=== PATIENT | male | born 1935 | race Caucasian/White ===

== ENCOUNTER 2017-07-18 13:30 | Inpatient (IN) | payer MEDICARE, OTHER ==
[~2017-07-18] VITALS: Ht 182.9 cm; Wt 92.4 kg
[2017-07-18] MEDS ORDERED: CELE200C PO (14:25)
[2017-07-18] MEDS ORDERED: METO-539 PO (14:25)
[2017-07-18] MEDS ORDERED: CHOL400T14 PO (14:25)
[2017-07-18] MEDS ORDERED: FEXO180T94 PO (14:25)
[2017-07-18] MEDS ORDERED: FLUT100D2 INH (14:25)
[2017-07-18] MEDS ORDERED: ASPI-1265 PO (14:25)
[2017-07-18] MEDS ORDERED: VITA1CAP (14:25)
[2017-07-18] MEDS ORDERED: OMEG1CAP2 (14:25)
[2017-07-18] MEDS ORDERED: MULT-1085 PO (14:25)
[2017-07-18] MEDS ORDERED: SIMV20TA5 PO (14:25)
[2017-07-18] MEDS ORDERED: FLO0.4C PO (14:25)
[2017-07-18 16:07] LABS: BASOPHILS % (AUTO) 0.3 % (0-1); EOSINOPHILS # (AUTO) 0.2 X10'3 (0-0.9); EOSINOPHILS % (AUTO) 3.8 % (0-6); LYMPHOCYTES # (AUTO) 1.8 X10'3 (1.1-4.8); LYMPHOCYTES % (AUTO) 35.6 % (21-51); MEAN CORPUSCULAR HEMOGLOBIN 31.2 PG (27.0-31.0); MEAN CORPUSCULAR HGB CONC 33.8 % (33.0-36.5); MEAN CORPUSCULAR VOLUME 92.4 FL (78-98); MEAN PLATELET VOLUME 9.2 FL (7.4-10.4); MONOCYTES # (AUTO) 0.3 X10'3 (0-0.9); MONOCYTES % (AUTO) 6.5 % (2-12); NEUTROPHILS # (AUTO) 2.7 X10'3 (1.8-7.7); NEUTROPHILS % (AUTO) 53.8 % (42-75); PRE OP HEMATOCRIT 47.8 % (42.0-52.0); PRE OP HEMOGLOBIN 16.1 g/dL (14.0-17.9); PRE OP PLATELET COUNT 162 X10'3 (140-440); RED BLOOD COUNT 5.18 X10'6 (4.70-6.10); RED CELL DISTRIBUTION WIDTH 14.4 % (11.5-14.5)
[2017-07-18 16:08] LABS: CLARITY,URINE CLEAR (Clear); COLOR,URINE YELLOW (Yellow); GLUCOSE, URINE NEGATIVE (Neg); KETONES,URINE NEGATIVE (Neg); LEUKOCYTE ESTERASE ,URINE SMALL (Neg); NITRITES, URINE NEGATIVE (Neg); OCCULT BLOOD,URINE NEGATIVE (Neg); PROTEIN,URINE NEGATIVE (Neg); UROBILINOGEN,URINE 0.2 E.U/dL (0.2-1.0)
[2017-07-18 16:16] LABS: UA COLLECTION TYPE CLN CATCH MIDSTREAM
[2017-07-18 16:18] LABS: BACTERIA,URINE FEW /HPF (Neg); MUCUS STRANDS FEW /LPF (Neg); RBC,URINE 0-2 /HPF (0-2); SQUAMOUS EPITHELIAL CELL,UR FEW /LPF (FEW); WBC,URINE 0-4 /HPF (0-4)
[2017-07-18 16:21] LABS: ALBUMIN 3.7 G/DL (3.4-5.0); ALKALINE PHOSPHATASE 54 IU/L (46-116); BLOOD UREA NITROGEN 20 MG/DL (7-18); CHLORIDE 105 MMOL/L (99-107); CREATININE 0.87 MG/DL (0.60-1.10); PRE OP ALT 30 U/L (30-65); PRE OP ANION GAP 6 (8-16); PRE OP AST 25 U/L (10-37); PRE OP BILIRUB, TOTAL 0.3 MG/DL (0.0-1.0); PRE OP GLUCOSE 121 MG/DL (70-104); PRE OP SODIUM 140 MMOL/L (135-145); TOTAL CARBON DIOXIDE 29.5 MMOL/L (24-32); TOTAL PROTEIN 7.3 G/DL (6.4-8.2); eGFR 84 ML/MIN
[2017-07-24] VITALS (21 sets, daily range): BP systolic 96–139; BP diastolic 63–93
[2017-07-24] MEDS ORDERED: ringers solution, lacted 1,000 ML IV SCH ×2 (05:00→08:38)
[2017-07-24] MEDS ORDERED: gabapentin 300mg capsule PO ONE (05:30)
[2017-07-24] MEDS ORDERED: tranexamic acid inj. 1,000 MG in normal saline 100ml IV soln 90 ML IV ONE (05:30)
[2017-07-24] MEDS ORDERED: metoclopramide 5 mg/ml inj IV ONE (05:30)
[2017-07-24] MEDS ORDERED: vancomycin inj 1,500 MG in normal saline 300ml IV soln IV ONE (05:30)
[2017-07-24] MEDS ORDERED: famotidine 20mg tablet PO ONE (05:30)
[2017-07-24] MEDS ORDERED: DOCUMENT DATE & TIME OF BETA-BLOCKER PO ONE (05:30)
[2017-07-24] MEDS ORDERED: ceFAZolin inj. 2,000 MG in normal saline 100ml IV soln 100 ML IV ONE (05:30)
[2017-07-24] MEDS ORDERED: acetaminophen 325mg tablet PO ONE (05:30)
[2017-07-24] MEDS ORDERED: oxyCODONE SR 10mg (sust. release) tab PO ONE (05:30)
[2017-07-24] MEDS ORDERED: morphine 10mg/ml inj. ONE (06:36)
[2017-07-24] MEDS ORDERED: ROPIVAcaine 0.5% (5mg/ml) 30ml vial ONE (06:36)
[2017-07-24] MEDS ORDERED: ketorolac trometh. 30mg/ml inj. ONE (06:36)
[2017-07-24] MEDS ORDERED: vancomycin 1,000mg inj ONE (06:37)
[2017-07-24] MEDS ORDERED: ceFAZolin 1000mg inj ONE (06:45)
[2017-07-24] MEDS ORDERED: cloNIDine hcl/PF 100mcg/ml inj ONE (07:17)
[2017-07-24] MEDS ORDERED: tetracaine 1% (10mg/ml) pres. free inj. ONE (07:19)
[2017-07-24] MEDS ORDERED: glycopyrrolate 0.2mg/ml inj ONE (07:20)
[2017-07-24] MEDS ORDERED: diphenhydrAMINE 50 mg/ml inj ONE (07:20)
[2017-07-24] MEDS ORDERED: fentaNYL/PF 50MCG/1 ML 2ML syringe ONE (07:22)
[2017-07-24] MEDS ORDERED: midazolam 2 mg/2 ml injection ONE ×2 (07:22→08:07)
[2017-07-24] MEDS ORDERED: morphine sulfate /PF 0.5 MG/ML 10mL ampul ONE (07:23)
[2017-07-24] MEDS ORDERED: LIDOcaine 2% (20mg/ml) 5ml vial ONE (08:14)
[2017-07-24] MEDS ORDERED: propofol inj 20 ML IV ONE ×2 (08:14)
[2017-07-24] MEDS ORDERED: naloxone 2mg/2ml inj 1.8 MG in normal saline 500ml IV soln 500 ML IV PRN (08:38)
[2017-07-24] MEDS ORDERED: ondansetron/PF 4mg/2ml inj IV PRN ×3 (08:40→10:10)
[2017-07-24] MEDS ORDERED: morphine 4 MG/ML inj SYRINge IV PRN (08:40)
[2017-07-24] MEDS ORDERED: HYDROmorphone inj. 0.5 MG/0.5 ML DISP.SYRIN IV PRN ×2 (08:40)
[2017-07-24] MEDS ORDERED: diphenhydrAMINE 50 mg/ml inj IV PRN (08:40)
[2017-07-24] MEDS ORDERED: dexamethasone sod phosphate 4mg/ml inj. ONE (08:43)
[2017-07-24] MEDS ORDERED: diphenhydrAMINE 25mg capsule PO PRN ×2 (10:10)
[2017-07-24] MEDS ORDERED: HYDROmorphone 1 mg/ml syringe IV PRN ×2 (10:10)
[2017-07-24] MEDS ORDERED: bisacodyl 10mg suppository rectal RC PRN (10:10)
[2017-07-24] MEDS ORDERED: oxyCODONE IR 5mg (immed. release) tablet PO PRN (10:10)
[2017-07-24] MEDS ORDERED: acetaminophen 325mg tablet PO PRN (10:10)
[2017-07-24] MEDS ORDERED: magnesium hydroxide 30ml (MOM) UD suspension PO PRN (10:10)
[2017-07-24] MEDS: gabapentin 300mg capsule PO SCH ×2 (12:31→20:19)
[2017-07-24] MEDS: potassium cl 20mEq in 1/2 NS 1,000 ML IV SCH ×2 (12:31→18:06)
[2017-07-24] MEDS ORDERED: tranexamic acid inj. 900 MG in normal saline 100ml IV soln 100 ML IV ONE (13:30)
[2017-07-24] MEDS: acetaminophen 325mg tablet PO SCH ×2 (14:00→20:18)
[2017-07-24] MEDS: ceFAZolin 1GM/D5W- ADD-VANTAGE 50 ML IV SCH (15:33)
[2017-07-24] MEDS ORDERED: vancomycin/NS 1 GM ADD-VANTAGE 250 ML IV SCH (20:00)
[2017-07-24] MEDS: sennosides 8.6mg tablet PO SCH (20:18)
[2017-07-25] MEDS: ceFAZolin 1GM/D5W- ADD-VANTAGE 50 ML IV SCH (00:08)
[2017-07-25] MEDS: potassium cl 20mEq in 1/2 NS 1,000 ML IV SCH ×3 (01:54→18:06)
[2017-07-25 02:00] VITALS: BP 111/59
[2017-07-25] MEDS: acetaminophen 325mg tablet PO SCH ×4 (02:04→20:12)
[2017-07-25] MEDS: oxyCODONE IR 5mg (immed. release) tablet PO PRN ×3 (05:23→16:58)
[2017-07-25 05:53] LABS: BASOPHILS % (AUTO) 0.3 % (0-1); EOSINOPHILS # (AUTO) 0.1 X10'3 (0-0.9); EOSINOPHILS % (AUTO) 1.8 % (0-6); HEMATOCRIT 38.5 % (42.0-52.0); LYMPHOCYTES # (AUTO) 1.1 X10'3 (1.1-4.8); LYMPHOCYTES % (AUTO) 12.7 % (21-51); MEAN CORPUSCULAR HEMOGLOBIN 31.3 PG (27.0-31.0); MEAN CORPUSCULAR HGB CONC 33.7 % (33.0-36.5); MEAN PLATELET VOLUME 9.1 FL (7.4-10.4); MONOCYTES # (AUTO) 0.6 X10'3 (0-0.9); MONOCYTES % (AUTO) 7.3 % (2-12); NEUTROPHILS # (AUTO) 6.5 X10'3 (1.8-7.7); NEUTROPHILS % (AUTO) 77.9 % (42-75); PLATELET COUNT 130 X10'3 (140-440); RED BLOOD COUNT 4.14 X10'6 (4.70-6.10); RED CELL DISTRIBUTION WIDTH 14.5 % (11.5-14.5); WHITE BLOOD COUNT 8.4 X10'3 (4.5-11.0)
[2017-07-25 06:05] LABS: ANION GAP 5 (8-16); CHLORIDE 105 MMOL/L (99-107); POTASSIUM 4.4 MMOL/L (3.5-5.1); SODIUM 137 MMOL/L (135-145); TOTAL CARBON DIOXIDE 27.3 MMOL/L (24-32)
[2017-07-25 07:15] VITALS: BP 102/60
[2017-07-25] MEDS: gabapentin 300mg capsule PO SCH ×3 (07:41→20:13)
[2017-07-25] MEDS: enoxaparin 40mg/0.4ml syringe SQ SCH (07:42)
[2017-07-25 11:19] VITALS: BP 95/52
[2017-07-25] MEDS: LACTOSE-FREE FOOD 237ML (BOOST) PO SCH ×2 (13:04→18:58)
[2017-07-25 14:21] VITALS: BP 115/66
[2017-07-25 18:00] VITALS: BP 118/76
[2017-07-25] MEDS: atorvastatin 10mg tablet PO SCH (20:12)
[2017-07-25] MEDS: celeCOXIB 100mg capsule PO SCH (20:12)
[2017-07-25] MEDS: cetirizine 10mg tablet PO SCH (20:13)
[2017-07-25] MEDS: sennosides 8.6mg tablet PO SCH (20:13)
[2017-07-25 22:30] VITALS: BP 156/77
[2017-07-26] MEDS: acetaminophen 325mg tablet PO SCH ×2 (02:00→07:44)
[2017-07-26] MEDS: potassium cl 20mEq in 1/2 NS 1,000 ML IV SCH (02:06)
[2017-07-26 05:00] VITALS: BP 151/82
[2017-07-26] MEDS: oxyCODONE IR 5mg (immed. release) tablet PO PRN (05:42)
[2017-07-26 06:09] LABS: BASOPHILS % (AUTO) 0.4 % (0-1); EOSINOPHILS # (AUTO) 0.4 X10'3 (0-0.9); EOSINOPHILS % (AUTO) 6.4 % (0-6); HEMATOCRIT 39.1 % (42.0-52.0); HEMOGLOBIN 13.1 g/dl (14.0-17.9); LYMPHOCYTES # (AUTO) 1.4 X10'3 (1.1-4.8); LYMPHOCYTES % (AUTO) 23.7 % (21-51); MEAN CORPUSCULAR HEMOGLOBIN 31.1 PG (27.0-31.0); MEAN CORPUSCULAR HGB CONC 33.6 % (33.0-36.5); MEAN CORPUSCULAR VOLUME 92.7 FL (78-98); MEAN PLATELET VOLUME 9.1 FL (7.4-10.4); MONOCYTES # (AUTO) 0.5 X10'3 (0-0.9); MONOCYTES % (AUTO) 9.3 % (2-12); NEUTROPHILS # (AUTO) 3.5 X10'3 (1.8-7.7); NEUTROPHILS % (AUTO) 60.2 % (42-75); PLATELET COUNT 130 X10'3 (140-440); RED BLOOD COUNT 4.22 X10'6 (4.70-6.10); RED CELL DISTRIBUTION WIDTH 14.6 % (11.5-14.5); WHITE BLOOD COUNT 5.9 X10'3 (4.5-11.0)
[2017-07-26] MEDS: multivitamins, therapeutics tablet PO SCH (07:43)
[2017-07-26] MEDS: fluticasone nasal spray 16GM bottle NS SCH (07:43)
[2017-07-26] MEDS: tamsulosin 0.4mg capsule PO SCH (07:43)
[2017-07-26] MEDS: gabapentin 300mg capsule PO SCH ×3 (07:43→20:32)
[2017-07-26] MEDS: celeCOXIB 100mg capsule PO SCH ×2 (07:43→20:32)
[2017-07-26] MEDS: metoprolol succinate 25mg (24-HOUR) SR. Tablet PO SCH (07:43)
[2017-07-26] MEDS: cholecalciferol (vitamin D) 400 unit tablet PO SCH (07:44)
[2017-07-26] MEDS: enoxaparin 40mg/0.4ml syringe SQ SCH (07:44)
[2017-07-26] MEDS: LACTOSE-FREE FOOD 237ML (BOOST) PO SCH ×3 (07:45→18:45)
[2017-07-26] MEDS ORDERED: OMEGA-3/DHA/EPA/FISH OIL 1 EACH CAPSULE.DR PO SCH (08:00)
[2017-07-26 10:00] VITALS: BP 157/75
[2017-07-26] MEDS ORDERED: mag hydrox/Alum hydrox/simeth 30ml oral suspension PO PRN (11:35)
[2017-07-26 18:39] VITALS: BP 143/84
[2017-07-26] MEDS: atorvastatin 10mg tablet PO SCH (20:32)
[2017-07-26] MEDS: sennosides 8.6mg tablet PO SCH (20:32)
[2017-07-26] MEDS: cetirizine 10mg tablet PO SCH (20:32)
[2017-07-26] MEDS: acetaminophen 325mg tablet PO PRN (20:34)
[2017-07-26 22:32] VITALS: BP 138/73
[2017-07-27 06:00] VITALS: BP 153/87
[2017-07-27] MEDS: metoprolol succinate 25mg (24-HOUR) SR. Tablet PO SCH (07:05)
[2017-07-27] MEDS: gabapentin 300mg capsule PO SCH (07:05)
[2017-07-27] MEDS: fluticasone nasal spray 16GM bottle NS SCH (07:05)
[2017-07-27] MEDS: tamsulosin 0.4mg capsule PO SCH (07:05)
[2017-07-27] MEDS: multivitamins, therapeutics tablet PO SCH (07:05)
[2017-07-27] MEDS: acetaminophen 325mg tablet PO PRN (07:05)
[2017-07-27] MEDS: celeCOXIB 100mg capsule PO SCH (07:05)
[2017-07-27] MEDS: enoxaparin 40mg/0.4ml syringe SQ SCH (07:06)
[2017-07-27 07:08] LABS: BASOPHILS % (AUTO) 0.3 % (0-1); EOSINOPHILS # (AUTO) 0.4 X10'3 (0-0.9); EOSINOPHILS % (AUTO) 6.2 % (0-6); HEMATOCRIT 38.4 % (42.0-52.0); HEMOGLOBIN 12.9 g/dl (14.0-17.9); LYMPHOCYTES # (AUTO) 1.5 X10'3 (1.1-4.8); LYMPHOCYTES % (AUTO) 24.2 % (21-51); MEAN CORPUSCULAR HEMOGLOBIN 31.3 PG (27.0-31.0); MEAN CORPUSCULAR HGB CONC 33.6 % (33.0-36.5); MEAN CORPUSCULAR VOLUME 93.1 FL (78-98); MEAN PLATELET VOLUME 9.5 FL (7.4-10.4); MONOCYTES # (AUTO) 0.5 X10'3 (0-0.9); MONOCYTES % (AUTO) 8.2 % (2-12); NEUTROPHILS # (AUTO) 3.8 X10'3 (1.8-7.7); NEUTROPHILS % (AUTO) 61.1 % (42-75); PLATELET COUNT 140 X10'3 (140-440); RED BLOOD COUNT 4.13 X10'6 (4.70-6.10); RED CELL DISTRIBUTION WIDTH 14.3 % (11.5-14.5); WHITE BLOOD COUNT 6.3 X10'3 (4.5-11.0)
[2017-07-27] MEDS: LACTOSE-FREE FOOD 237ML (BOOST) PO SCH ×2 (07:12→07:39)
[2017-07-27] MEDS: cholecalciferol (vitamin D) 400 unit tablet PO SCH (07:12)
[2017-07-27 10:00] VITALS: BP 118/69
== END 2017-07-27 12:16 | disposition home health service (06) | DRG 470 ==
LOC: EDSTATUS 13:30 → PAS IN 07-24 05:29 → EDSTATUS 07-24 08:30 → ORTHO 4S 07-24 12:25
PROVIDERS: ADMIT Orthopaedic Surgery; ATTEND Orthopaedic Surgery
PROC: 8E0Y4CZ Robotic Assisted Procedure of Lower Extremity, Percutaneous Endoscopic Approach (ICD-10-PCS; 2017-07-24)
PROC: 3E0T3BZ Introduction of Anesthetic Agent into Peripheral Nerves and Plexi, Percutaneous Approach (ICD-10-PCS; 2017-07-24)
PROC: 0SRC0J9 Replacement of Right Knee Joint with Synthetic Substitute, Cemented, Open Approach (ICD-10-PCS; principal; 2017-07-24 07:16)
DX: M17.11 Unilateral primary osteoarthritis, right knee (principal); D62 Acute posthemorrhagic anemia; E78.5 Hyperlipidemia, unspecified; I10 Essential (primary) hypertension; J45.909 Unspecified asthma, uncomplicated; N40.0 Benign prostatic hyperplasia without lower urinary tract symptoms; Z79.899 Other long term (current) drug therapy
CPT/HCPCS: 36415; 80051; 80053; 81001; 85025; 87070; 87088; 97110; 97116; 97161; A6455; A7000; C1713; C1758; C1776; C9250; J0690; J0735; J1100; J1200; J1650; J1885; J2001; J2250; J2270; J2274; J2405; J2704; J2765; J2795; J3010; J3370; J3490; J7030; J7120

== ENCOUNTER 2023-10-23 07:04 | Day surgery (SDC) | payer BC, OTHER ==
[~2023-10-23] VITALS: Ht 182.9 cm; Wt 91.6 kg
[2023-10-23] VITALS (15 sets, daily range): BP systolic 115–175; BP diastolic 42–89; PULSE 42–59; RESP 10–19; TEMP 97.5; O2SAT 92–97
[~2023-10-23 07:04] MED LIST: ASPI-1265 PO; CELE200C PO; CHOL400T14 PO; FEXO180T94 PO; FLO0.4C PO; FLUT100D2 INH; METO-539 PO; MULT-1085 PO; OMEG1CAP2; SIMV-42 PO; VITA1CAP
[2023-10-23] MEDS ORDERED: METO-384 PO (07:39)
[2023-10-23] MEDS ORDERED: ATOR20TA66 PO (07:39)
[2023-10-23] MEDS ORDERED: FINA5TAB11 PO (07:40)
[2023-10-23] MEDS ORDERED: LORazepam 0.5 MG tablet PO PRN (07:50)
[2023-10-23] MEDS ORDERED: diphenhydrAMINE 25mg capsule PO PRN (07:50)
[2023-10-23 08:10] LABS: ALBUMIN 3.5 G/DL (3.4-5.0); ANION GAP 5 (8-16); BLOOD UREA NITROGEN 17 MG/DL (7-18); BUN/CREATININE RATIO 19.3 (10.0-20.0); CALCIUM 8.9 MG/DL (8.5-10.1); CHLORIDE 107 MMOL/L (99-107); CREATININE 0.88 MG/DL (0.60-1.10); GLUCOSE 105 MG/DL (70-104); POTASSIUM 4.2 MMOL/L (3.5-5.1); SODIUM 138 MMOL/L (135-145); TOTAL CARBON DIOXIDE 25.7 MMOL/L (24-32); eCRCL 64 ML/MIN; eGFR 82 ML/MIN
[2023-10-23 08:15] LABS: APTT 27 SECONDS (22-32); INR 1.1 INR
[2023-10-23 08:52] LABS: BASOPHILS % (AUTO) 0.8 % (0-1); EOSINOPHILS # (AUTO) 0.2 X10'3 (0-0.9); EOSINOPHILS % (AUTO) 5.5 % (0-6); HEMATOCRIT 41.5 % (42.0-52.0); LYMPHOCYTES # (AUTO) 1.5 X10'3 (1.1-4.8); MEAN CORPUSCULAR HEMOGLOBIN 37.2 PG (27.0-31.0); MEAN CORPUSCULAR HGB CONC 36.2 g/dL (33.0-36.5); MEAN CORPUSCULAR VOLUME 102.8 FL (78-98); MEAN PLATELET VOLUME 9.7 FL (7.4-10.4); MONOCYTES # (AUTO) 0.2 X10'3 (0-0.9); MONOCYTES % (AUTO) 5.6 % (2-12); NEUTROPHILS # (AUTO) 2.1 X10'3 (1.8-7.7); NEUTROPHILS % (AUTO) 52.1 % (42-75); PLATELET COUNT 120 X10'3 (140-440); RED BLOOD COUNT 4.04 X10'6 (4.70-6.10); RED CELL DISTRIBUTION WIDTH 14.2 % (11.5-14.5); WHITE BLOOD COUNT 4.1 X10'3 (4.5-11.0)
[2023-10-23] MEDS ORDERED: LIDOcaine 1% (10mg/ml) 2ml vial ONE (10:04)
[2023-10-23] MEDS ORDERED: fentaNYL/PF 50MCG/1 ML 2ML syringe ONE (10:04)
[2023-10-23] MEDS ORDERED: midazolam 1 mg/ML 2ml injection ONE (10:04)
[2023-10-23] MEDS ORDERED: verapamil 2.5 mg/ml inj IV ONE (10:04)
[2023-10-23] MEDS ORDERED: iohexol 350 MG/ML 50ML vial IV ONE (10:05)
[2023-10-23] MEDS ORDERED: heparin 1,000unit/ml 10ml vial 10 ML ONE (10:05)
[2023-10-23] MEDS ORDERED: nitroGLYCERIN 500mcg/5mL D5W 5 ML IV ONE ×2 (10:05→11:12)
[2023-10-23] MEDS ORDERED: iohexol 350MG/ML 100ml bottle IV ONE ×2 (10:05→10:43)
[2023-10-23] MEDS ORDERED: heparin 25,000 UNIT/250ml bag 250 ML IV ONE (10:43)
[2023-10-23] MEDS ORDERED: clopidogrel 300mg tablet ONE (11:24)
[2023-10-23] MEDS ORDERED: aspirin 325mg tablet ONE (11:33)
[2023-10-23] MEDS ORDERED: HYDROcodone/acetaminophen 10/325mg tab PO PRN (12:55)
[2023-10-23] MEDS ORDERED: normal saline 1000ml 1,000 ML IV SCH (12:55)
[2023-10-23] MEDS ORDERED: HYDROcodone/acetaminophen 5mg/325mg tablet PO PRN (12:55)
[2023-10-23] MEDS ORDERED: CLOP75TA33 PO (14:33)
[2023-10-23] MEDS ORDERED: ATOR40TA72 PO (14:33)
[2023-10-23] MEDS ORDERED: ASPI-1265 PO (14:33)
[2023-10-23] MEDS: normal saline 1,000 ML IV SCH (14:44)
[2023-10-23] MEDS: aspirin 325mg tablet PO ONE (14:44)
[2023-10-24] MEDS ORDERED: clopidogrel 75mg tablet PO SCH (08:00)
== END 2023-10-23 18:20 | disposition home or self-care (01) ==
LOC: SSTAY O 07:04
PROVIDERS: ATTEND Internal Medicine Cardiovascular Disease
DX: T82.855A Stenosis of coronary artery stent, initial encounter (principal); I25.119 Atherosclerotic heart disease of native coronary artery with unspecified angina pectoris; I44.4 Left anterior fascicular block; I10 Essential (primary) hypertension; E78.5 Hyperlipidemia, unspecified; I25.2 Old myocardial infarction; M19.90 Unspecified osteoarthritis, unspecified site; Z79.82 Long term (current) use of aspirin; Z79.899 Other long term (current) drug therapy; Z82.49 Family history of ischemic heart disease and other diseases of the circulatory system; Z80.9 Family history of malignant neoplasm, unspecified; Z95.5 Presence of coronary angioplasty implant and graft; Y71.2 Prosthetic and other implants, materials and accessory cardiovascular devices associated with adverse incidents; Y92.89 Other specified places as the place of occurrence of the external cause
CPT/HCPCS: 36415; 80048; 85025; 85347; 85610; 85730; 93005; 93458; 99152; 99153; A6258; C1874; C9600; J1644; J2250; J3010; J3490; J7030; Q9967; 76937; A6402; C1725; C1751; C1769; C1894